=== PATIENT | male | born 1985 | race Caucasian/White ===

== ENCOUNTER 2016-06-16 13:54 | Emergency (ER) | payer OTHER ==
[~2016-06-16] VITALS: Ht 177.8 cm; Wt 86.0 kg
[~2016-06-16 13:54] MED LIST: AUGM875T PO; ERYT1O LEFT EYE
[2016-06-16 14:03] VITALS: BP 131/77; PULSE 89; RESP 20; TEMP 97.2; O2SAT 98
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
[2016-06-16 14:19] VITALS: TEMP 98.5
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
[2016-06-16] MEDS ORDERED: NORC5TAB PO (15:45)
[2016-06-16] MEDS ORDERED: MOBI15TA PO (15:45)
[2016-06-16] MEDS ORDERED: ACETAMINOPHEN/HYDROcodone 325 MG/5 MG TAB PO ONE (15:45)
[2016-06-16 17:26] VITALS: BP 128/75; TEMP 98.3
== END 2016-06-16 18:23 | disposition home or self-care (01) ==
LOC: NEPA 13:54
DX: S43.102A Unspecified dislocation of left acromioclavicular joint, initial encounter (principal); V49.9XXA Car occupant (driver) (passenger) injured in unspecified traffic accident, initial encounter; Y93.9 Activity, unspecified; Y92.9 Unspecified place or not applicable; Y99.9 Unspecified external cause status
CPT/HCPCS: 71010; 72040; 72170; 73030; 73060; 73090; 99284